=== PATIENT | female | born 1970 | race Caucasian/White ===

== ENCOUNTER 2020-03-28 04:05 | Emergency (ER) | payer OTHER ==
[2020-03-28] MEDS ORDERED: solu-MEDROL 125 MG IV ONE (04:34)
[2020-03-28] MEDS ORDERED: PROVENTIL 2.5 MG/3 ML NEB IH ONE ×2 (04:35→04:56)
[2020-03-28] MEDS ORDERED: solu-MEDROL 125 MG ONE (04:38)
--- NOTE | 2020-03-28 04:40 | ERPHSYRPT ---
- History of Present Illness Time Seen by Provider: 03/28/20 04:25 Source: patient Patient Subjective Stated Complaint: pt c/o sob and cough, feels like airway is closing up Triage Nursing Assessment: pt c/o sob and cough, feels like airway is closing up. Pt has hx of asthma and thinks this is an exac of her asthma. Pt is coughing non stop, non-prod cough, wheezes audibly ant and post. Physician History: This is a 49-year-old white female has a history of asthma and bronchitis who presents with sudden onset of shortness of breath and wheezing. Onset of symptoms occurred this morning at 12:15 AM. Patient took a nebulizer treatment then several inhaler treatments on the way to the emergency room. Patient occasionally has asthmatic exacerbations. She has not had any fever. She has no chest pain primarily. She does state that her head and body aches because of coughing so many times forcefully. She has no urinary tract infection symptoms. She has no nausea vomiting or diarrhea. Patient drove herself to the emergency department. Timing/Duration: today Severity of Dyspnea-Max: moderate Severity of Dyspnea-Current: moderate Possible Cause: occasional episodes Modifying Factors: Improves With: albuterol inhaler, albuterol nebulizer, coughing Associated Symptoms: intermittent, anxiety, cough, wheezing, No chest pain/discomfort, No fever Allergies/Adverse Reactions: cefaclor [From Ceclor] Adverse Reaction (Mild, Verified 03/28/20 04:27) Rash cephalexin [From Keflex] Adverse Reaction (Mild, Verified 03/28/20 04:27) Rash Home Medications: Albuterol 2.5 mg/3 ml Neb [Proventil 2.5 mg/3 ml Neb] 1 neb IH Q4-6HPRN PRN 03/28/20 [History] Aspirin 81 gm Chew [Baby Aspirin 81 mg Chew] 1 tab PO DAILY 03/28/20 [History] Budesonide/Formoterol Fumarate [Symbicort 80-4.5 Mcg Inhaler] 2 puffs IH DAILY 03/28/20 [History] Fluticasone Propionate [Flonase NASAL] 2 sprays IH BID 03/28/20 [History] Loratadine 10 mg [Claritin 10 mg] 10 mg PO DAILY 12/10/20 [History] Hx Tetanus, Diphtheria Vaccination/Date Given: Yes Hx Influenza Vaccination/Date Given: Yes Hx Pneumococcal Vaccination/Date Given: No Immunizations Up to Date: Yes Travel Risk - International Travel Have you traveled outside of the country in past 3 weeks: No - Coronavirus Screening Are you exhibiting any of the following symptoms?: No Close contact with a COVID-19 positive Pt in past 14-21 Days: No - Review of Systems Constitutional: No Symptoms Eyes: No Symptoms Ears, Nose, & Throat: No Symptoms Respiratory: Cough, Dyspnea, Wheezing Cardiac: No Symptoms Abdominal/Gastrointestinal: No Symptoms Genitourinary Symptoms: No Symptoms Musculoskeletal: No Symptoms Skin: No Symptoms Neurological: No Symptoms Psychological: No Symptoms Endocrine: No Symptoms Hematologic/Lymphatic: No Symptoms Immunological/Allergic: No Symptoms All Other Systems: Reviewed and Negative - Past Medical History Pertinent Past Medical History: Yes Neurological History: No Pertinent History ENT History: No Pertinent History Cardiac History: Angina, Other Respiratory History: Asthma, Bronchitis Endocrine Medical History: Hyperthyroidism Musculoskeletal History: No Pertinent History GI Medical History: Gallbladder Disease History: No Pertinent History Psycho-Social History: No Pertinent History Female Reproductive Disorders: Menstrual Problems Other Medical History: myocardial bridging - Past Surgical History Past Surgical History: Yes Neuro Surgical History: No Pertinent History Cardiac: No Pertinent History Respiratory: No Pertinent History Gastrointestinal: Cholecystectomy Genitourinary: No Pertinent History Musculoskeletal: No Pertinent History Female Surgical History: Other Other Surgical History: ablation. 7 ear surgeries - Social History Smoking Status: Never smoker Exposure to second hand smoke: No Drug Use: none Patient Lives Alone: No - Female History Hx Now: No - Nursing Vital Signs Nursing Vital Signs: Initial Vital Signs Temperature 98.3 F 03/28/20 04:14 Pulse Rate 108 H 03/28/20 04:14 Respiratory Rate 24 03/28/20 04:14 Blood Pressure 139/78 03/28/20 04:14 O2 Sat by Pulse Oximetry 96 03/28/20 04:14 Pain Scale Pain Intensity 0 - Physical Exam General Appearance: mild distress, alert, anxiety Eye Exam: PERRL/EOMI, eyes nml inspection Ears, Nose, Throat Exam: hearing grossly normal, normal ENT inspection, normal pharynx Neck Exam: normal inspection, non-tender, supple, full range of motion Respiratory Exam: normal breath sounds, lungs clear, respiratory distress (Mild), airway intact, No chest tenderness Cardiovascular/Chest Exam: normal heart sounds, tachycardia Abdominal/Gastrointestinal Exam: soft, normal bowel sounds, No tenderness Rectal Exam: not done Extremity Exam: non-tender, normal range of motion, normal inspection, no calf tenderness, no pedal edema, pelvis stable Neurologic Exam: alert, oriented x 3, cooperative, reservations clerk II-XII nml as tested, nml cerebellar function, nml station & gait, sensation nml Skin Exam: normal color, warm, dry Lymphatic Exam: No adenopathy SpO2 Interpretation: borderline oxygenation SpO2: 95 O2 Delivery: Room Air - Course Nursing assessment & vital signs reviewed: Yes EKG Interpreted by Me: RATE ([id number]), Sinus Rhythm, NORMAL AXIS, NORMAL INTERVALS, NORMAL QRS, Other (There are no acute ischemic changes on today's EKG. 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 STAT Care 03/28/20 04:35 Active EKG-ER Only STAT Care 03/28/20 04:34 Active IV Insertion STAT Care 03/28/20 04:34 Active Pulse Oximetry (ED) STAT Care 03/28/20 04:34 Active CHEST 1 VIEW (PORTABLE) Stat Exams 03/28/20 04:35 Taken CBC W DIFF Stat Lab 03/28/20 04:45 Completed CMP Stat Lab 03/28/20 04:45 Completed D-DIMER QUANTITATIVE Stat Lab 03/28/20 04:45 Completed INFLUENZA A+B GERARD Stat Lab 03/28/20 04:34 Ordered Lactic Acid Stat Lab 03/28/20 05:10 Completed NT PRO BNP Stat Lab 03/28/20 04:45 Completed TROPONIN Q3H Lab 03/28/20 04:45 Completed TROPONIN Q3H Lab 03/28/20 07:45 Ordered TROPONIN Q3H Lab 03/28/20 10:45 Ordered TROPONIN Q3H Lab 03/28/20 13:45 Ordered TROPONIN Q3H Lab 03/28/20 16:45 Ordered Respiratory Therapy Assessment DAILY RT 03/28/20 04:41 Completed Medication Summary Discontinued Medications Generic Name Dose Route Start Last Admin Trade Name Freq PRN Reason Stop Dose Admin Hydrocodone Bitart/Acetaminophen 15 ml 03/28/20 05:01 Hydrocodone-Acetamin 2.5-108/5 Ml Solution PO 03/28/20 05:02 STAT STA Albuterol Sulfate Confirm 03/28/20 04:35 Proventil 2.5 Mg/3 Ml Neb Administered 03/28/20 04:36 Dose 10 mg IH .STK-MED ONE Albuterol Sulfate 9 mg 03/28/20 04:56 03/28/20 04:58 Proventil 2.5 Mg/3 Ml Neb IH 03/28/20 04:57 9 mg STAT ONE Administration Methylprednisolone Sodium Succinate 125 mg 03/28/20 04:34 03/28/20 04:39 Solu-Medrol 125 Mg IV 03/28/20 04:35 125 mg STAT ONE Administration Methylprednisolone Sodium Succinate Confirm 03/28/20 04:38 Solu-Medrol 125 Mg Administered 03/28/20 04:39 Dose 125 mg .ROUTE .STK-MED ONE Lab/Rad Data: Laboratory Result Diagrams 03/28/20 04:45 03/28/20 04:45 Laboratory Results 03/28/20 03/28/20 03/28/20 Range/Units 05:10 04:45 04:45 WBC (4.0-10.5) K/mm3 RBC (4.1-5.4) M/mm3 Hgb (12.0-16.0) gm/dl Hct (35-47) % MCV (78-100) fl MCH (26-32) pg MCHC (32-36) g/dl RDW (11.5-14.0) % Plt Count (150-450) K/mm3 MPV (7.5-11.0) fl Gran % (36.0-66.0) % Eos # (Auto) (0-0.5) Absolute Lymphs (auto) (1.0-4.6) Absolute Monos (auto) (0.0-1.3) Lymphocytes % (24.0-44.0) % Monocytes % (0.0-12.0) % Eosinophils % (0.00-5.0) % Basophils % (0.0-0.4) % Absolute Granulocytes (1.4-6.9) Basophils # (0-0.4) D-Dimer 327 (215-500) ng/mL Sodium (137-145) mmol/L Potassium (3.5-5.1) mmol/L Chloride (98-107) mmol/L Carbon Dioxide (22-30) mmol/L Anion Gap (5-15) MEQ/L BUN (7-17) mg/dL Creatinine (0.52-1.04) mg/dL Estimated GFR ML/MIN Glucose (74-106) mg/dL Lactic Acid 0.9 (0.4-2.0) Calcium (8.4-10.2) mg/dL Total Bilirubin (0.2-1.3) mg/dL AST (14-36) U/L ALT (0-35) U/L Alkaline Phosphatase (38-126) U/L Troponin I < 0.012 (0.000-0.034) ng/mL NT-Pro-B Natriuret Pep (0-450) pg/mL Serum Total Protein (6.3-8.2) g/dL Albumin (3.5-5.0) g/dL 03/28/20 03/28/20 Range/Units 04:45 04:45 WBC 10.0 (4.0-10.5) K/mm3 RBC 4.69 (4.1-5.4) M/mm3 Hgb 14.0 (12.0-16.0) gm/dl Hct 41.5 (35-47) % MCV 88.5 (78-100) fl MCH 29.9 (26-32) pg MCHC 33.7 (32-36) g/dl RDW 12.3 (11.5-14.0) % Plt Count 322 (150-450) K/mm3 MPV 9.4 (7.5-11.0) fl Gran % 40.2 (36.0-66.0) % Eos # (Auto) 1.22 H (0-0.5) Absolute Lymphs (auto) 3.90 (1.0-4.6) Absolute Monos (auto) 0.83 (0.0-1.3) Lymphocytes % 38.9 (24.0-44.0) % Monocytes % 8.3 (0.0-12.0) % Eosinophils % 12.2 H (0.00-5.0) % Basophils % 0.4 (0.0-0.4) % Absolute Granulocytes 4.03 (1.4-6.9) Basophils # 0.04 (0-0.4) D-Dimer (215-500) ng/mL Sodium 141 (137-145) mmol/L Potassium 4.2 (3.5-5.1) mmol/L Chloride 107 (98-107) mmol/L Carbon Dioxide 25 (22-30) mmol/L Anion Gap 12.9 (5-15) MEQ/L BUN 18 H (7-17) mg/dL Creatinine 1.16 H (0.52-1.04) mg/dL Estimated GFR 52.8 ML/MIN Glucose 109 H (74-106) mg/dL Lactic Acid (0.4-2.0) Calcium 9.9 (8.4-10.2) mg/dL Total Bilirubin 0.40 (0.2-1.3) mg/dL AST 50 H (14-36) U/L ALT 49 H (0-35) U/L Alkaline Phosphatase 46 (38-126) U/L Troponin I (0.000-0.034) ng/mL NT-Pro-B Natriuret Pep 34.5 (0-450) pg/mL Serum Total Protein 8.1 (6.3-8.2) g/dL Albumin 4.6 (3.5-5.0) g/dL - Progress Progress: improved, re-examined Air Movement: good Progress Note: 03/28/20 05:11 Patient refuses flu swabs. She feels this is more acute exacerbation of her asthma. 03/28/20 05:29 Chest x-ray shows no acute cardiopulmonary process Blood Culture(s) Obtained: Yes Antibiotics given: No Counseled pt/family regarding: lab results, diagnosis, need for follow-up, rad results - Departure Departure Disposition: Home Clinical Impression: Acute asthma exacerbation Condition: Stable Critical Care Time: No Referrals: MILAN GARDNER MD [Primary Care Provider] - Prescriptions: Hydrocodone/Acetaminophen [Hydrocodone-Acetamn 7.5-325/15] 10 ml PO Q8H PRN PRN #120 solution MDD 30 ml PRN Reason: Cough Prednisone 10 mg [Deltasone 10 mg] 10 mg PO TID #12 tablet
[2020-03-28 04:59] LABS: Absolute Neutrophil Ct (ANC) 4.03 (1.4-6.9); BASOPHIL % 0.4 % (0.0-0.4); Basophil (Absolute #) 0.04 (0-0.4); Eosinophil % 12.2 % (0.00-5.0); Eosinophil (Absolute #) 1.22 (0-0.5); Hematocrit 41.5 % (35-47); Lymphocytes % 38.9 % (24.0-44.0); Mean Cell Volume 88.5 fl (78-100); Mean Corpuscular Hemoglobin 29.9 pg (26-32); Mean Corpuscular Hgb Concent. 33.7 g/dl (32-36); Mean Platelet Volume 9.4 fl (7.5-11.0); Monocyte (Absolute #) 0.83 (0.0-1.3); Monocytes % 8.3 % (0.0-12.0); Neutrophil % 40.2 % (36.0-66.0); Platelet Count 322 K/mm3 (150-450); Red Blood Count 4.69 M/mm3 (4.1-5.4); Red Cell Distribution Width 12.3 % (11.5-14.0)
[2020-03-28] MEDS ORDERED: HYDROCODONE-ACETAMIN 2.5-108/5 ML SOLUTION PO STA (05:01)
[2020-03-28 05:14] LABS: ALBUMIN 4.6 g/dL (3.5-5.0); ANION GAP 12.9 MEQ/L (5-15); BILIRUBIN,TOTAL 0.4 mg/dL (0.2-1.3); Calcium 9.9 mg/dL (8.4-10.2); Creatinine 1 1.16 mg/dL (0.52-1.04); EST GLOMERULAR FILTRATION RATE 52.8 ML/MIN; NT PRO BNP 34.5 pg/mL (0-450); Potassium 4.2 mmol/L (3.5-5.1); Total Protein 8.1 g/dL (6.3-8.2)
[2020-03-28] MEDS ORDERED: HYDROCODONE-ACETAMIN 2.5-108/5 ML SOLUTION ONE (05:38)
[2020-03-28 06:05] VITALS: BP 126/56; PULSE 90; O2SAT 97
--- NOTE | 2020-03-28 09:24 | XRAY ---
Indication: Short of breath and wheezing. Comparison: None Portable chest demonstrates normal heart and lungs. Bony thorax intact with minimal scoliosis.
== END 2020-03-28 06:45 | disposition home or self-care (01) ==
LOC: ED 04:05
DX: J45.901 Unspecified asthma with (acute) exacerbation (principal)
CPT/HCPCS: 36000; 36415; 71045; 80053; 83605; 83880; 84484; 85025; 85379; 93005; 93041; 94640; 94760; 96374; 99284; J2930; J7609; A9270-GY

== ENCOUNTER 2021-03-30 04:05 | Emergency (ER) | payer OTHER ==
[2021-03-30] MEDS ORDERED: NITRO-BID 2% UD PACKETS TOP ONE (05:01)
[2021-03-30] MEDS ORDERED: NITRO-BID 2% UD PACKETS ONE (05:03)
--- NOTE | 2021-03-30 05:05 | ERPHSYRPT ---
<MILAN GARDNER - Last Filed: 03/30/21 07:38> - History of Present Illness Time Seen by Provider: 03/30/21 04:30 Allergies/Adverse Reactions: cefaclor [From Ceclor] Adverse Reaction (Mild, Verified 03/30/21 04:06) Rash cephalexin [From Keflex] Adverse Reaction (Mild, Verified 03/30/21 04:06) Rash Home Medications: Albuterol 2.5 mg/3 ml Neb [Proventil 2.5 mg/3 ml Neb] 1 neb IH Q4-6HPRN PRN 03/28/20 [History] Budesonide/Formoterol Fumarate [Symbicort 80-4.5 Mcg Inhaler] 2 puffs IH DAILY 03/28/20 [History] Fluticasone Propionate [Flonase NASAL] 2 sprays IH BID 03/28/20 [History] - Course EKG Interpreted by Me: Sinus Rhythm Rhythm Strip: Normal Sinus Rhythm - Radiology Exams Chest X-ray Interpretation: Reviewed by me, Negative, No Pneumonia, No Pneumothorax - Progress Progress: improved Air Movement: good Blood Culture(s) Obtained: No Antibiotics given: No Counseled pt/family regarding: lab results, diagnosis, need for follow-up, rad results - Departure Departure Disposition: Home Clinical Impression: Chest pain due to psychological stress Condition: Stable Critical Care Time: Yes Critical Care Time(excluding separately billable procedures): Critical 30-74 mins Referrals: MILAN GARDNER MD [Primary Care Provider] - Follow up/PCP as directed Instructions: Chest Pain (DC) Additional Instructions: Discharge/Care Plan LELA BACK was seen on 03/30/21 in the Emergency Room. The patient was counseled regarding Diagnosis,Lab results, Imaging studies, need for follow up and when to return to the Emergency Room. Prescriptions given: Discharge Note I have spoken with the patient and/or caregivers. I have explained the patient's condition, diagnosis and treatment plan based on the information available to me at this time. I have answered the patient's and/or caregiver's questions and addressed any concerns. The patient and/or caregivers have as good understanding of the patient's diagnosis, condition and treatment plan as can be expected at this point. The vital signs have been stable. The patient's condition is stable and appropriate for discharge from the emergency department. The patient will pursue further outpatient evaluation with the primary care physician or other designated or consulting physician as outlined in the discharge instructions. The patient and/or caregivers are agreeable to this plan of care and follow-up instructions have been explained in detail. The patient and/or caregivers have received these instruction. The patient/and or caregivers are aware that any significant change in condition or worsening of symptoms should prompt an immediate return to this or the closest emergency department or call 911. NAZANINPEGGY was seen on 03/30/21 n the Emergency Room. At that time you were treated for an emergent condition, during your visit Laboratory, Radiology and/or other procedures may have been ordered. It is very important that you follow-up with your Primary Care Physician MILAN GARDNER within the next 24-48 hours to review your Emergency Room visit and the final results of testing that was ordered. Some test results such as Urine Cultures, Blood Cultures, and other cultures if ordered will not be finalized for 24-48 hours. If you do not have a Primary Care Provider please call the medical records dep artment at [phone] ext [phone] to obtain a copy of your results or you may sign into our patient portal to obtain these results by visiting us @ [email or web address] and completing the following steps: 1. Click on the Patient Portal link 2. Click the Patient Self Enrollment Link to complete the enrollment form and entering your 3. Once the enrollment form is completed you will receive an email with a temporary ID and password at the email address you provided. 4. Next choose a user name and password. Your user name must be at least 4 characters long and your password must be at least 4 characters long. 5. Choose a security question from the list and provide your answer to the question. If you already have signed into the Health Portal you may access your Health Care Information 09/11 by the following steps: 1. Login to our website @ [email or web address] 2. Enter your original user name and password. FAQS The [facility] Health Portal is an online tool that contains your Lab Results, Radiology Reports, Visit History, Discharge Instructions and Health Summary Lab and Radiology Results will not be available for 72 hours on the portal. The Portal is a secure site, passwords are encryted and URLs are re-written so they cannot be copied and pasted. You and authorized family members are the only ones who can access your Portal. Also there is a timeout feature that protects your information if you leave the Portal page open. If you have technical difficulty please use the Contact Us link on the page this will allow you to submit any questions you have regarding the Portal or you may contact the Medical Record Department at [phone] ext [phone]. <RENETTA PRINCE - Last Filed: 04/01/21 19:26> - History of Present Illness Historian: patient Exam Limitations: no limitations Patient Subjective Stated Complaint: "My chest is hurting." Triage Nursing Assessment: The patient is a 50 y/o white female with PMH significant for angina, myocardial bridgin, hyperthyroidism, and asthma/bronchitis. She reported an acute onset midsternal chest pain at 1800 on 03/29/21 while at rest. Pain is located midsternal and radiating to the back and left shoulder. The patient described the pain as a pressure that is constant. She reported associated nausea without vomiting. Denied headache, dizziness, visual/auditory disturbances, shortness of breath, or lower extremitiy swelling. Pupils 3mm bilateral. neck supple without JVD. Symmetrical chest expansion. heart tones S1/S2 RRR without extra sounds. Lungs vesicular with adequate airflow and without adventitious sounds. Bilateral radial pulses +3. No noted dependent edema. Physician History: 50 years old female with history of asthma presented in the ER with chief complaint of substernal chest pressure tightness with radiation to the back and left shoulder without any significant aggravating or relieving factors since 6 PM last night. Denies associated palpitations or shortness of breath. No fever chills or cough reported. Does report having some pressure sensation of the left arm and cardiac work-up was essentially unremarkable at that time. Timing/Duration: hour(s) (10), constant, gradual onset, worse Activities at Onset: rest Quality: fullness, pressure Location: substernal, central Chest Pain Radiation: arm, back Severity of Pain-Max: moderate Severity of Pain-Current: moderate Modifying Factors: Improves With: nothing Associated Symptoms: denies symptoms Nitro Today/Relief: no nitro taken today Aspirin Treatment Today: 81 mg x 4 Hx Tetanus, Diphtheria Vaccination/Date Given: Yes Hx Influenza Vaccination/Date Given: Yes Hx Pneumococcal Vaccination/Date Given: No Travel Risk - International Travel Have you traveled outside of the country in past 3 weeks: No - Coronavirus Screening Are you exhibiting any of the following symptoms?: No Close contact with a COVID-19 positive Pt in past 14-21 Days: No - Vaccine Status Have you recieved a Covid-19 vaccination: Yes 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: [employer] - Vaccination Dates Date of 2cond Vaccination (if applicable): 05/2020 - Review of Systems Constitutional: No Symptoms Eyes: No Symptoms Ears, Nose, & Throat: No Symptoms Respiratory: No Symptoms Cardiac: Chest Pain Abdominal/Gastrointestinal: No Symptoms Genitourinary Symptoms: No Symptoms Musculoskeletal: No Symptoms Skin: No Symptoms Neurological: No Symptoms Psychological: No Symptoms Endocrine: No Symptoms Hematologic/Lymphatic: No Symptoms Immunological/Allergic: No Symptoms - Past Medical History Pertinent Past Medical History: Yes Neurological History: No Pertinent History ENT History: No Pertinent History Cardiac History: Angina, Other Respiratory History: Asthma, Bronchitis Endocrine Medical History: Hyperthyroidism Musculoskeletal History: No Pertinent History GI Medical History: Gallbladder Disease History: No Pertinent History Psycho-Social History: No Pertinent History Female Reproductive Disorders: Menstrual Problems Other Medical History: myocardial bridging - Past Surgical History Past Surgical History: Yes Neuro Surgical History: No Pertinent History Cardiac: No Pertinent History Respiratory: No Pertinent History Gastrointestinal: Cholecystectomy Genitourinary: No Pertinent History Musculoskeletal: No Pertinent History Female Surgical History: Other Other Surgical History: ablation. 7 ear surgeries - Social History Smoking Status: Never smoker Exposure to second hand smoke: No Drug Use: none Patient Lives Alone: No - Female History Hx Now: No - Nursing Vital Signs Nursing Vital Signs: Initial Vital Signs Pulse Rate 64 03/30/21 04:05 Respiratory Rate 18 03/30/21 04:05 Blood Pressure 135/75 03/30/21 04:05 O2 Sat by Pulse Oximetry 100 03/30/21 04:05 Pain Scale Pain Intensity 0 - Physical Exam General Appearance: no apparent distress, alert Eye Exam: PERRL/EOMI, eyes nml inspection Ears, Nose, Throat Exam: normal ENT inspection, pharynx normal Neck Exam: normal inspection, non-tender, supple, full range of motion Respiratory Exam: normal breath sounds, lungs clear Cardiovascular Exam: regular rate/rhythm, normal heart sounds Gastrointestinal/Abdomen Exam: soft, normal bowel sounds, No tenderness Back Exam: normal inspection, normal range of motion Extremity Exam: normal inspection, normal range of motion, pelvis stable Neurologic Exam: alert, oriented x 3, cooperative, instrument lens inspector II-XII nml as tested Skin Exam: normal color SpO2 Interpretation: normal SpO2: 100 O2 Delivery: Room Air - Course EKG Interpreted by Me: RATE ([id number]), Sinus Tach, NORMAL AXIS, NORMAL INTERVALS, Non-specific ST Changes Ordered Tests: Medication Summary Discontinued Medications Generic Name Dose Route Start Last Admin Trade Name Toy PRN Reason Stop Dose Admin Nitroglycerin 0.5 gm 03/30/21 05:01 03/30/21 05:04 Nitroglycerin 1 Gm Packet TOP 03/30/21 05:02 0.5 gm STAT ONE Administration Nitroglycerin Confirm 03/30/21 05:03 Nitroglycerin 1 Gm Packet Administered 03/30/21 05:04 Dose 1 gm .ROUTE .[employer] ONE Lab/Rad Data: Laboratory Result Diagrams 03/30/21 04:40 03/30/21 04:40 Laboratory Results 03/30/21 03/30/21 03/30/21 Range/Units 07:20 04:40 04:40 WBC (4.0-10.5) K/mm3 RBC (4.1-5.4) M/mm3 Hgb (12.0-16.0) gm/dl Hct (35-47) % MCV (78-100) fl MCH (26-32) pg MCHC (32-36) g/dl RDW (11.5-14.0) % Plt Count (150-450) K/mm3 MPV (7.5-11.0) fl Gran % (36.0-66.0) % Eos # (Auto) (0-0.5) Absolute Lymphs (auto) (1.0-4.6) Absolute Monos (auto) (0.0-1.3) Lymphocytes % (24.0-44.0) % Monocytes % (0.0-12.0) % Eosinophils % (0.00-5.0) % Basophils % (0.0-0.4) % Absolute Granulocytes (1.4-6.9) Basophils # (0-0.4) D-Dimer 300 (215-500) ng/mL Sodium (137-145) mmol/L Potassium (3.5-5.1) mmol/L Chloride (98-107) mmol/L Carbon Dioxide (22-30) mmol/L Anion Gap (5-15) MEQ/L BUN (7-17) mg/dL Creatinine (0.52-1.04) mg/dL Estimated GFR ML/MIN Glucose (74-106) mg/dL Calcium (8.4-10.2) mg/dL Total Bilirubin (0.2-1.3) mg/dL AST (14-36) U/L ALT (0-35) U/L Alkaline Phosphatase (38-126) U/L Troponin I < 0.012 < 0.012 (0.000-0.034) ng/mL NT-Pro-B Natriuret Pep (0-900) pg/mL Serum Total Protein (6.3-8.2) g/dL Albumin (3.5-5.0) g/dL 03/30/21 03/30/21 Range/Units 04:40 04:40 WBC 8.2 (4.0-10.5) K/mm3 RBC 4.32 (4.1-5.4) M/mm3 Hgb 12.9 (12.0-16.0) gm/dl Hct 38.2 (35-47) % MCV 88.4 (78-100) fl MCH 29.9 (26-32) pg MCHC 33.8 (32-36) g/dl RDW 12.6 (11.5-14.0) % Plt Count 343 (150-450) K/mm3 MPV 9.4 (7.5-11.0) fl Gran % 46.3 (36.0-66.0) % Eos # (Auto) 0.70 H (0-0.5) Absolute Lymphs (auto) 3.01 (1.0-4.6) Absolute Monos (auto) 0.68 (0.0-1.3) Lymphocytes % 36.8 (24.0-44.0) % Monocytes % 8.3 (0.0-12.0) % Eosinophils % 8.6 H (0.00-5.0) % Basophils % 0.0 (0.0-0.4) % Absolute Granulocytes 3.79 (1.4-6.9) Basophils # 0 (0-0.4) D-Dimer (215-500) ng/mL Sodium 137 (137-145) mmol/L Potassium 3.7 (3.5-5.1) mmol/L Chloride 104 (98-107) mmol/L Carbon Dioxide 25 (22-30) mmol/L Anion Gap 11.7 (5-15) MEQ/L BUN 13 (7-17) mg/dL Creatinine 1.04 (0.52-1.04) mg/dL Estimated GFR 59.6 ML/MIN Glucose 99 (74-106) mg/dL Calcium 8.9 (8.4-10.2) mg/dL Total Bilirubin 0.50 (0.2-1.3) mg/dL AST 25 (14-36) U/L ALT 19 (0-35) U/L Alkaline Phosphatase 46 (38-126) U/L Troponin I (0.000-0.034) ng/mL NT-Pro-B Natriuret Pep 29.7 (0-900) pg/mL Serum Total Protein 7.2 (6.3-8.2) g/dL Albumin 4.4 (3.5-5.0) g/dL - Progress Progress Note: 03/30/21 06:54 50 years old is evaluated for chest pain. EKG showed no acute ST elevation. Given Nitropaste, on reevaluation feeling better. Negative troponins. Recommended observation admission but patient wants to go home. She is counseled but she is adamant about going home and says "I will return to ER if has chest pain again but will follow up outpatient". At this point care is transferred to at shift change for reevaluation and final disposition
[2021-03-30 05:47] LABS: Absolute Neutrophil Ct (ANC) 3.79 (1.4-6.9); Basophil (Absolute #) 0 (0-0.4); Eosinophil % 8.6 % (0.00-5.0); Hematocrit 38.2 % (35-47); Hemoglobin 12.9 gm/dl (12.0-16.0); Lymphocyte (Absolute #) 3.01 (1.0-4.6); Lymphocytes % 36.8 % (24.0-44.0); Mean Cell Volume 88.4 fl (78-100); Mean Corpuscular Hemoglobin 29.9 pg (26-32); Mean Corpuscular Hgb Concent. 33.8 g/dl (32-36); Mean Platelet Volume 9.4 fl (7.5-11.0); Monocyte (Absolute #) 0.68 (0.0-1.3); Monocytes % 8.3 % (0.0-12.0); Neutrophil % 46.3 % (36.0-66.0); Platelet Count 343 K/mm3 (150-450); Red Blood Count 4.32 M/mm3 (4.1-5.4); Red Cell Distribution Width 12.6 % (11.5-14.0); White Blood Count 8.2 K/mm3 (4.0-10.5)
[2021-03-30 06:08] LABS: ALBUMIN 4.4 g/dL (3.5-5.0); ANION GAP 11.7 MEQ/L (5-15); BILIRUBIN,TOTAL 0.5 mg/dL (0.2-1.3); Calcium 8.9 mg/dL (8.4-10.2); Creatinine 1 1.04 mg/dL (0.52-1.04); EST GLOMERULAR FILTRATION RATE 59.6 ML/MIN; NT PRO BNP 29.7 pg/mL (0-900); Potassium 3.7 mmol/L (3.5-5.1); Total Protein 7.2 g/dL (6.3-8.2)
[2021-03-30 08:08] VITALS: BP 114/70; PULSE 68
--- NOTE | 2021-03-30 08:47 | XRAY ---
Indication: Chest pain. Comparison: March 28, 2020. Portable chest again demonstrates normal heart and lungs. Bony thorax intact. No new/acute findings.
[2021-04-01 19:26] VITALS: O2SAT 100
== END 2021-03-30 08:08 | disposition home or self-care (01) ==
LOC: ED 04:05
DX: R07.89 Other chest pain (principal); F54 Psychological and behavioral factors associated with disorders or diseases classified elsewhere
CPT/HCPCS: 36000; 36415; 71045; 80053; 83880; 84484; 85025; 85379; 93005; 93041; 99284; 99291; A9270-GY